=== PATIENT | female | born 1970 | race Caucasian/White ===

== ENCOUNTER 2016-04-26 18:23 | Emergency (ER) | payer OTHER, SELFPAY ==
--- NOTE | 2016-04-27 19:08 | ER ---
ADMIT: 04/26/2016 RM/LOC: ER [facility] MR#: [id number] [facility] [id number] [place] [address] [place] [address] Emergency Room Report SEX: F AGE: 45 : 1970 DATE: 04/26/2016 A 45-year-old female, sustained left index finger tip crush injury in car door prior to arrival. Exam remarkable for nontoxic, afebrile female with 2.5 cm index finger tip laceration not involving nail plate. X-ray confirms nondisplaced tuft fracture. Wound anesthetized with Xylocaine 1% digital block, thoroughly scrubbed, irrigated, and closed with 4-0 Prolene x3, bacitracin, Band-Aid, and aluminum form splint, hydrocodone 5/325 as needed #20 plus 6 from Pyxis, Keflex 1 g p.o. in department, 500 mg q.i.d. x7 days. Follow up Dr. Gavin in 7 to 10 days for suture removal. Cricket Smith MD/ ilya JOB #: [id number] CC: Solo Rush MD, Attending Physician Olena Gavin PA-C, Family Physician Olena Gavin PA-C
== END 2016-04-26 19:45 | disposition home or self-care (01) ==
LOC: ER 18:23
PROC: 0HQGXZZ Repair Left Hand Skin, External Approach (ICD-10-PCS; principal; 2016-04-26)
PROC: 2W3KX1Z Immobilization of Left Finger using Splint (ICD-10-PCS; 2016-04-26)
DX: S67.191A Crushing injury of left index finger, initial encounter (principal); S62.661B Nondisplaced fracture of distal phalanx of left index finger, initial encounter for open fracture; Z23 Encounter for immunization; W23.0XXA Caught, crushed, jammed, or pinched between moving objects, initial encounter; Y92.009 Unspecified place in unspecified non-institutional (private) residence as the place of occurrence of the external cause

== ENCOUNTER → 2016-08-08 | Outpatient (CLI) | payer OTHER | END | disposition home or self-care (01) | LOC: RAD.S 10:45 | DX: Z12.31 Encounter for screening mammogram for malignant neoplasm of breast (principal) ==